=== PATIENT | female | born 1935 | race African-American/Black ===

== ENCOUNTER 2018-04-02 01:11 | Emergency (ER) | payer MEDICARE, OTHER, BC ==
[~2018-04-02] VITALS: Ht 160 cm; Wt 78.5 kg
[~2018-04-02 01:11] MED LIST: ACET325T9 PO; ALPR0.5T6 PO; ASPI-482 PO; BYSTOLIC5 MG PO; CALC-77 PO; CHOL200074 PO; CRESTOR10 MG PO; DIAZ5TAB PO; FERR55TA PO; OMEG10006 PO; OMEP20TA8 PO; PSYL480P PO; SPIR25TA5 PO; VIT1TABL32 PO
[2018-04-02 01:45] VITALS: BP 132/65
[2018-04-02] MEDS ORDERED: AMOX1TAB61 PO (02:09)
--- NOTE | 2018-04-02 02:09 | PHYS DOC ---
Past Medical History Past Medical History: Anxiety, Arthritis, GERD, Hypertension, Other Additional Past Medical Histor: HIGH CHOLESTEROL Past Surgical History: Cholecystectomy, Other Additional Past Surgical Histo: BILAT CARP TUNNEL RELEASE, BILAT TRIGGER THUMB , D&C, COMB-UTERUS, R ELBOW Alcohol Use: None Drug Use: None Adult General Chief Complaint Chief Complaint: EARACHE/EAR PAIN [facility] HPI Patient is a 82 year old [f__sex] who presents with [] Review of Systems Review of Systems Constitutional: Denies fever or chills [] Eyes: Denies change in visual acuity, redness, or eye pain [] HENT: Denies nasal congestion or sore throat [] Respiratory: Denies cough or shortness of breath [] Cardiovascular: No additional information not addressed in HPI [] GI: Denies abdominal pain, nausea, vomiting, bloody stools or diarrhea [] : Denies dysuria or hematuria [] Musculoskeletal: Denies back pain or joint pain [] Integument: Denies rash or skin lesions [] Neurologic: Denies headache, focal weakness or sensory changes [] Endocrine: Denies polyuria or polydipsia [] All other systems were reviewed and found to be within normal limits, except as documented in this note. Allergies Allergies Allergies Coded Allergies Type Severity Reaction Last Updated Verified codeine Allergy Intermediate 04/18/14 Yes Physical Exam Physical Exam Constitutional: Well developed, well nourished, no acute distress, non-toxic appearance. [] HENT: Normocephalic, atraumatic, bilateral external ears normal, oropharynx moist, no oral exudates, nose normal. [] Eyes: PERRLA, EOMI, conjunctiva normal, no discharge. [] Neck: Normal range of motion, no tenderness, supple, no stridor. [] Cardiovascular:Heart rate regular rhythm, no murmur [] Lungs & Thorax: Bilateral breath sounds clear to auscultation [] Abdomen: Bowel sounds normal, soft, no tenderness, no masses, no pulsatile masses. [] Skin: Warm, dry, no erythema, no rash. [] Back: No tenderness, no CVA tenderness. [] Extremities: No tenderness, no cyanosis, no clubbing, ROM intact, no edema. [] Neurologic: Alert and oriented X 3, normal motor function, normal sensory function, no focal deficits noted. [] Psychologic: Affect normal, judgement normal, mood normal. [] Current Patient Data Vital Signs Vital Signs Date Time Temp Pulse Resp B/P (MAP) Pulse Ox O2 Delivery O2 Flow Rate FiO2 04/02/18 01:45 96.6 74 16 132/65 (87) 99 96.6 EKG EKG [] Radiology/Procedures Radiology/Procedures [] Course & Med Decision Making Course & Med Decision Making Pertinent Labs and Imaging studies reviewed. (See chart for details) [] Dragon Disclaimer Dragon Disclaimer This electronic medical record was generated, in whole or in part, using a voice recognition dictation system. Departure Departure Impression: Primary Impression: Earache on left Disposition: 01 HOME, SELF-CARE Condition: STABLE Referrals: NON,STAFF (PCP) Patient Instructions: Otalgia-Brief Additional Instructions: Hold antibiotics for 48 hours. If symptoms worsen or for fever > 100.3 F after 48 hours then start antibiotics as prescribed. Scripts Amoxicillin/Potassium Clav (AUGMENTIN 875-125 TABLET) 1 Each Tablet 1 TAB PO BID, #14 TAB Prov: MER HEDRICK DO 04/02/18 MER HEDRICK DO Apr 02, 2018 02:09
[2018-04-02] MEDS ORDERED: DEXAMETHASONE 4 MG TABLET PO ONE (02:30)
== END 2018-04-02 02:20 | disposition home or self-care (01) ==
LOC: ER 01:11
DX: H92.02 Otalgia, left ear (principal); F41.9 Anxiety disorder, unspecified; M19.90 Unspecified osteoarthritis, unspecified site; K21.9 Gastro-esophageal reflux disease without esophagitis; I10 Essential (primary) hypertension; E78.00 Pure hypercholesterolemia, unspecified; Z90.49 Acquired absence of other specified parts of digestive tract; Z88.5 Allergy status to narcotic agent
CPT/HCPCS: 99283; J8540